=== PATIENT | male | born 1950 | race Caucasian/White ===

== ENCOUNTER → 2020-01-03 11:00 | Outpatient (BNVA) | payer BC, OTHER, SELFPAY | PROVIDERS: PCP Internal Medicine; Visit Provider Urology | DX: Z76.89 Persons encountering health services in other specified circumstances (principal) ==

== ENCOUNTER → 2021-01-07 11:01 | Outpatient (BNVA) | payer BC, SELFPAY | PROVIDERS: Visit Provider Urology | DX: N40.1 Benign prostatic hyperplasia with lower urinary tract symptoms (principal); N13.8 Other obstructive and reflux uropathy; N52.01 Erectile dysfunction due to arterial insufficiency | CPT/HCPCS: 51798 ==

== ENCOUNTER → 2022-02-11 11:38 | Outpatient (BNVA) | payer BC, OTHER, SELFPAY | PROVIDERS: PCP Internal Medicine; Visit Provider Urology | DX: N40.1 Benign prostatic hyperplasia with lower urinary tract symptoms (principal); N13.8 Other obstructive and reflux uropathy; N52.01 Erectile dysfunction due to arterial insufficiency | CPT/HCPCS: 51798 ==

== ENCOUNTER 2023-06-02 15:03 | Outpatient (AMB) | payer BC, OTHER, SELFPAY ==
--- NOTE | 2023-06-02 15:03 | A.OFFVIS_ITS ---
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 He is a patient of Dr. Rogel. He is seen for the following urologic conditions - erectile dysfunction - lower urinary tract symptoms Yearly follow-up Continue good effect with tadalafil Nocturia x1 Has been beneficial for both erections and lower urinary tract symptoms Refills provided Lower urinary tract symptoms Initial symptoms included nocturia 2-3 Some degree of hesitancy Good response to daily tadalafil Erectile dysfunction Continues to have a good response on daily tadalafil to both erectile dysfunction and weakness of stream Will continue Current treatment includes Cialis/tadalafil daily - with good effect. Treatment side effects include none. At this time he experiences erections are partial and adequate for vaginal penetration, that last until ejaculation, EDGARDO 17-21 Mild ED. Nocturnal erections do occur. Currently they are in a stable relationship. Overall he is satisfied with the current management. Therapeutic plan includes maintaining current therapy. [facility] Medical History Nocturia Hx of malignant melanoma Poor urinary stream Benign prostatic hyperplasia with lower urinary tract symptoms Erectile dysfunction Surgical History History of surgery Review of Systems Const Denies chills and Denies fever(s) Card Reports no additional complaints and Denies syncope Resp Denies cough GI Denies abdominal pain and Denies heartburn Reports as per HPI and Denies change in libido Neuro Denies syncope Psych Denies change in libido Endo Denies change in libido Physical Exam Const General: cooperative, healthy appearing, comfortable and no acute distress Orientation/consciousness: patient oriented x3 HEENT Face and sinus: Yes normal facial exam Mouth: moist mucous membranes Neck Neck: Yes normal visual inspection, Yes full ROM and Yes trachea midline Chest Chest palpation & inspection: normal inspection of the chest Resp Effort & Inspection: normal respiratory effort, able to speak in complete sentences and no respiratory distress GI Inspection: Yes normal to inspection Back/Spine/Pelvis Cervical Spine: normal cervical lordosis Thoracic/Lumbar Spine: thoracic and lumbar spine normal to inspection Skin General skin exam: no rashes or lesions noted Neuro General: patient oriented x3, gait normal, tone normal and moves all extremities Extrem General: Yes normal to inspection and Yes capillary refill normal Office Procedures Post Void Residual Post Residual Void Post Void Residual (PVR): 56 [id number] Void Residual by ultrasound Assessment & Plan Assessment & Plan (1) BPH w urinary obs/LUTS: Code(s): N40.1 - Benign prostatic hyperplasia with lower urinary tract symptoms; N13.8 - Other obstructive and reflux uropathy (2) Erectile dysfunction due to arterial insufficiency: Code(s): N52.01 - Erectile dysfunction due to arterial insufficiency Plan Twelve month follow-up Orders: Orders AMB Post Void Residual by ultrasound Today R33.9 - Retention of urine, unspecified Medications: Refilled tadalafil 5 mg PO DAILY 90 tabs 3RF 90 days N52.01 - Erectile dysfunction due to arterial insufficiency Patient Instructions: Imaging studies, laboratory and physical exam results were discussed and reviewed in detail. No major barriers to patient understanding were identified. An opportunity to ask questions regarding the treatment plan was provided. All questions were answered. The patient expressed understanding and agreement with the above treatment plan. The patient is aware they should contact our office by phone for worsening of their current condition or the appearance of new urologic symptoms. Compliance is encouraged with any medications and followup testing that is ordered. It is a privilege to participate in the urologic care of your patient. If you have any questions or concerns regarding treatment for the above conditions, or other urologic issues, please do not hesitate to contact me. The office telephone contact is [phone]. This note is constructed using voice recognition software. While every effort has been made to ensure accuracy activity assistant errors may have been included. Yours sincerely, Dr Lorenzo Dillon MD, [facility] - Urology Providers of Expert, Compassionate Care for the Genitourinary System Coding Level of Care Code Est Pt Level 4 (64410) Diagnoses BPH w urinary obs/LUTS N40.1; N13.8 Erectile dysfunction due to arterial insufficiency N52.01 CPT Codes Post Residual Void - PVR CPT Code: 68244-Xxhy Void Residual by ultrasound ([id number])
== END 2023-06-02 15:44 | disposition home or self-care (01) ==
PROVIDERS: Referring Provider Internal Medicine; Visit Provider Urology
DX: N40.1 Benign prostatic hyperplasia with lower urinary tract symptoms (principal); N13.8 Other obstructive and reflux uropathy; N52.01 Erectile dysfunction due to arterial insufficiency
CPT/HCPCS: 99213

== ENCOUNTER → 2023-06-02 15:03 | Outpatient (BNVA) | payer BC, OTHER, SELFPAY | PROVIDERS: Visit Provider Urology | DX: N40.1 Benign prostatic hyperplasia with lower urinary tract symptoms (principal); N13.8 Other obstructive and reflux uropathy; R33.8 Other retention of urine; N52.01 Erectile dysfunction due to arterial insufficiency | CPT/HCPCS: 51798 ==

== ENCOUNTER 2024-06-16 13:34 | Outpatient (AMB) | payer BC, OTHER, SELFPAY ==
--- NOTE | 2024-06-16 13:39 | MHC.OFFVIS ---
Intake Visit Reasons: 1yr/PVR Intake Note: Pt presents to the office today for a 1 year follow up/PVR. PVR: 13mL Allergies No Known Allergies Allergy (Verified 06/16/24 13:39) HPI Comments Details: Bakari is a pleasant male. He is a patient of Dr. Rogel. He is seen for the following urologic conditions - erectile dysfunction - lower urinary tract symptoms Yearly follow-up Continue good effect with tadalafil Nocturia x1 Has been beneficial for both erections and lower urinary tract symptoms Refills provided including daily and on demand Lower urinary tract symptoms Initial symptoms included nocturia 2-3 Some degree of hesitancy Good response to daily tadalafil Erectile dysfunction Continues to have a good response on daily tadalafil to both erectile dysfunction and weakness of stream Will continue Current treatment includes Cialis/tadalafil daily - with good effect. Treatment side effects include none. At this time he experiences erections are partial and adequate for vaginal penetration, that last until ejaculation, EDGARDO 17-21 Mild ED. Nocturnal erections do occur. Currently they are in a stable relationship. Overall he is satisfied with the current management. Therapeutic plan includes maintaining current therapy. [facility] Medical History Nocturia Hx of malignant melanoma Poor urinary stream Benign prostatic hyperplasia with lower urinary tract symptoms Erectile dysfunction Surgical History History of surgery Review of Systems Const Denies chills and Denies fever(s) Card Reports no additional complaints and Denies syncope Resp Denies cough GI Denies abdominal pain and Denies heartburn Reports as per HPI and Denies change in libido Neuro Denies syncope Psych Denies change in libido Endo Denies change in libido Physical Exam Const General: cooperative, healthy appearing, comfortable and no acute distress Orientation/consciousness: patient oriented x3 HEENT Face and sinus: Yes normal facial exam Mouth: moist mucous membranes Neck Neck: Yes normal visual inspection, Yes full ROM and Yes trachea midline Chest Chest palpation & inspection: normal inspection of the chest Resp Effort & Inspection: normal respiratory effort, able to speak in complete sentences and no respiratory distress GI Inspection: Yes normal to inspection Back/Spine/Pelvis Cervical Spine: normal cervical lordosis Thoracic/Lumbar Spine: thoracic and lumbar spine normal to inspection Skin General skin exam: no rashes or lesions noted Neuro General: patient oriented x3, gait normal, tone normal and moves all extremities Extrem General: Yes normal to inspection and Yes capillary refill normal Office Procedures Post Void Residual Post Residual Void Post Void Residual (PVR): 13 [id number] Void Residual by ultrasound Assessment & Plan Assessment & Plan (1) Erectile dysfunction due to arterial insufficiency: Code(s): N52.01 - Erectile dysfunction due to arterial insufficiency Category: Medical (2) BPH w urinary obs/LUTS: Code(s): N40.1 - Benign prostatic hyperplasia with lower urinary tract symptoms; N13.8 - Other obstructive and reflux uropathy Category: Medical Plan Twelve month follow-up Orders: Orders AMB Post Void Residual by ultrasound Today N13.8 - Other obstructive and reflux uropathy, N40.1 - Benign prostatic hyperplasia with lower urinary tract symptoms Medications: New tadalafil as needed 10 mg PO ONCE 30 days PRN 30 tabs 1RF sexual activity N52.01 - Erectile dysfunction due to arterial insufficiency, N52.9 - Male erectile dysfunction, unspecified Refilled tadalafil 5 mg PO DAILY 90 days 90 tabs 3RF N52.01 - Erectile dysfunction due to arterial insufficiency Patient Instructions: This note is constructed using voice recognition software. While every effort has been made to ensure accuracy ice cream chef errors may have been included. Imaging studies, laboratory and physical exam results were discussed and reviewed in detail. No major barriers to patient understanding were identified. An opportunity to ask questions regarding the treatment plan was provided. All questions were answered. The patient expressed understanding and agreement with the above treatment plan. The patient is aware they should contact our office by phone for worsening of their current condition or the appearance of new urologic symptoms. Compliance is encouraged with any medications and followup testing that is ordered. It is a privilege to participate in the urologic care of your patient. If you have any questions or concerns regarding treatment for the above conditions, or other urologic issues, please do not hesitate to contact me. The office telephone contact is [phone]. Sincerely, Dr Lorenzo Dillon MD, [facility] - Urology Compassionate Specialist Care for the Genitourinary System Coding Level of Care Code Est Pt Level 4 (99453) Diagnoses Erectile dysfunction due to arterial insufficiency N52.01 BPH w urinary obs/LUTS N40.1; N13.8 CPT Codes Post Residual Void - PVR CPT Code: 24056-Uxjg Void Residual by ultrasound ([id number])
== END 2024-06-16 14:09 | disposition home or self-care (01) ==
LOC: HO.HUSH 13:35
PROVIDERS: PCP Internal Medicine; Visit Provider Urology
DX: N52.01 Erectile dysfunction due to arterial insufficiency (principal); N40.1 Benign prostatic hyperplasia with lower urinary tract symptoms; N13.8 Other obstructive and reflux uropathy
CPT/HCPCS: 99214

== ENCOUNTER → 2024-06-16 13:34 | Outpatient (BNVA) | payer BC, OTHER, SELFPAY | PROVIDERS: PCP Internal Medicine; Visit Provider Urology | DX: N40.1 Benign prostatic hyperplasia with lower urinary tract symptoms (principal); N52.01 Erectile dysfunction due to arterial insufficiency; N13.8 Other obstructive and reflux uropathy | CPT/HCPCS: 51798 ==